=== PATIENT | female | born 1995 | race Caucasian/White ===

== ENCOUNTER 2017-05-12 15:49 | Emergency (ER) | payer OTHER ==
[~2017-05-12] VITALS: Ht 165.1 cm; Wt 113.4 kg
[~2017-05-12 15:49] MED LIST: DICY10CA3 PO; LACT1CAP6 PO; PROM25TA10 PO
[2017-05-12 16:09] VITALS: BP 145/73
[2017-05-12] MEDS ORDERED: fentaNYL PF VIAL 100 MCG/2 ML VIAL IV PRN (16:45)
[2017-05-12 16:58] LABS: BILIRUBIN,URINE SMALL (NEG); GLUCOSE,URINE NEGATIVE (NEG); NITRITE,URINE NEGATIVE (NEG); PROTEIN,URINE NEGATIVE (NEG-TRACE); UROBILINOGEN,URINE 0.2 mg/dL (0.2 mg/dL)
[2017-05-12] MEDS ORDERED: IV NORMAL SALINE 1000ML BAG 1,000 ML IV SCH (17:00)
[2017-05-12] MEDS ORDERED: FAMOTIDINE 20 MG/2 ML VIAL IVP ONE (17:00)
[2017-05-12] MEDS ORDERED: ONDANSETRON PF 4 MG/2 ML VIAL. IV ONE (17:00)
--- NOTE | 2017-05-12 17:15 | RAD ---
Ultrasound of the right upper quadrant of the abdomen 05/12/2017 Clinical history: Epigastric pain. Technique: A real-time ultrasound examination of the right upper quadrant of the abdomen was performed. Multiple images were obtained. Findings: The gallbladder is well distended. No gallstones are visualized. The gallbladder wall thickness is within normal limits. No pericholecystic fluid is seen. The liver is normal in size measuring 16.3 cm in length. Increased echogenicity of the liver parenchyma is seen consistent with fatty infiltration. No focal abnormality of the liver is seen. The common bile duct measures 3 mm in diameter which is within normal limits. The visualized portions of the pancreas and right kidney are within normal limits. Impression: Fatty infiltration of the liver. Otherwise negative study.
[2017-05-12 17:20] LABS: BACTERIA,URINE MANY /HPF (0-FEW); SQUAMOUS EPITHELIAL CELL,UR MOD /LPF
[2017-05-12 17:22] LABS: BASO % 0 % (0-3); EOS % 0 % (0-3); HEMATOCRIT 40.5 % (36.0-47.0); HEMOGLOBIN 13.5 g/dL (12.0-15.5); LYMPH # 1.4 x10^3/uL (1.0-4.8); LYMPH % 12 % (24-48); MEAN CORPUSCULAR HEMOGLOBIN 29 pg (25-35); MEAN CORPUSCULAR HGB CONC 33 g/dL (31-37); MEAN CORPUSCULAR VOLUME 85 fL (79-100); MONO % 6 % (0-9); NEUT % 81 % (31-73); PLATELET COUNT 252 x10^3/uL (140-400); RED BLOOD COUNT 4.74 x10^6/uL (3.50-5.40); RED CELL DISTRIBUTION WIDTH 12.7 % (11.5-14.5); WHITE BLOOD COUNT 11.2 x10^3/uL (4.0-11.0)
[2017-05-12 17:41] LABS: CALCIUM 8.9 mg/dL (8.5-10.1); CREATININE 0.8 mg/dL (0.6-1.0); GFR 89.7
[2017-05-12 17:48] LABS: ALBUMIN 3.5 g/dL (3.4-5.0); ALBUMIN/GLOBULIN RATIO 0.8 (1.0-1.7); TOTAL BILIRUBIN 0.7 mg/dL (0.2-1.0)
[2017-05-12] MEDS ORDERED: SUCR1TAB35 PO (18:04)
--- NOTE | 2017-05-12 18:04 | PHYS DOC ---
Past Medical History Past Medical History: No Pertinent History Past Surgical History: Appendectomy Alcohol Use: Rarely Drug Use: None Adult General Chief Complaint Chief Complaint: ABDOMINAL PAIN HPI HPI Patient is a 21 year old female who presents with complaint of abdominal pain. Patient states that she has been having symptoms of abdominal pain over the past 2 weeks. The pain has been intermittent, sharp, with underlying dull pressure since time of onset. Patient states that the symptoms usually worse in the nighttime. The patient was seen at [facility] emergency department approximately one week ago and was treated for gastritis. Patient states that since treatment she has continued to have persistent symptoms. Patient was seen by her primary doctor who did an H. pylori test which the patient states she has not received results back. She states that she was supposed to be set up with an ultrasound for further evaluation, however due to worsening symptoms today she came to the emergency department for evaluation. Patient denies any associated fevers. Patient has had associated nausea with her symptoms. Patient rates her pain as 7 out of 10. Patient has tried antacids and Phenergan for her symptoms with minimal relief. Patient states that the pain radiates from her abdomen around towards her back. Review of Systems Review of Systems Constitutional: Denies fever or chills [] Eyes: Denies change in visual acuity, redness, or eye pain [] HENT: Denies nasal congestion or sore throat [] Respiratory: Denies cough or shortness of breath [] Cardiovascular: Denies chest pain or edema [] GI: Abdominal pain, nausea, denies vomiting, bloody stools or diarrhea [] : Denies dysuria or hematuria [] Musculoskeletal: Denies back pain or joint pain [] Integument: Denies rash or skin lesions [] Neurologic: Denies headache, focal weakness or sensory changes [] Current Medications Current Medications Current Medications Medications (Trade) Dose Ordered Sig/Shanita Start Time Stop Time Status Last Admin Dose Admin Famotidine (Pepcid) 20 mg 1X ONCE 05/12/17 17:00 05/12/17 17:01 DC 05/12/17 16:54 20 MG Fentanyl Citrate (Fentanyl 2ml Vial) 50 mcg PRN Q15MIN PRN 05/12/17 16:45 05/12/17 23:59 05/12/17 16:54 50 MCG Ondansetron HCl (Zofran) 4 mg 1X ONCE 05/12/17 17:00 05/12/17 17:01 DC 05/12/17 16:53 4 MG Sodium Chloride 1,000 ml @ 1,000 mls/hr Q1H 05/12/17 17:00 05/12/17 17:59 05/12/17 16:53 1,000 MLS/HR Allergies Allergies Allergies Coded Allergies Type Severity Reaction Last Updated Verified No Known Drug Allergies 06/06/16 No Physical Exam Physical Exam Constitutional: Alert, afebrile, appears in mild to moderate discomfort. [] HENT: Normocephalic, atraumatic, bilateral external ears normal, oropharynx moist, no oral exudates, nose normal. [] Eyes: PERRLA, EOMI, conjunctiva normal, no discharge. [] Neck: Normal range of motion, no tenderness, supple, no stridor. [] Cardiovascular:Heart rate regular rhythm, no murmur [] Lungs & Thorax: Bilateral breath sounds clear to auscultation [] Abdomen: Bowel sounds normal, soft, epigastric tenderness to palpation, no guarding or rebound tenderness present, no masses, no pulsatile masses. [] Skin: Warm, dry, no erythema, no rash. [] Back: No tenderness, no CVA tenderness. [] Extremities: No tenderness, no cyanosis, no clubbing, ROM intact, no edema. [] Neurologic: Alert and oriented X 3, normal motor function, normal sensory function, no focal deficits noted. [] Current Patient Data Vital Signs Vital Signs Date Time Temp Pulse Resp B/P (MAP) Pulse Ox O2 Delivery O2 Flow Rate FiO2 05/12/17 16:54 18 97 Room Air 05/12/17 16:09 98.8 90 145/73 (97) 98.8 Lab Values Laboratory Tests Test 05/12/17 15:14 05/12/17 16:00 05/12/17 17:12 POC Urine HCG, Qualitative Hcg negative (Negative) Urine Collection Type Unknown Urine Color Yellow Urine Clarity Clear Urine pH 6.0 Urine Specific [place] >=1.030 Urine Protein Negative mg/dL (NEG-TRACE) Urine Glucose (UA) Negative mg/dL (NEG) Urine Ketones (Stick) Trace mg/dL (NEG) Urine Blood Negative (NEG) Urine Nitrite Negative (NEG) Urine Bilirubin Small (NEG) Urine Urobilinogen Dipstick 0.2 mg/dL (0.2 mg/dL) Urine Leukocyte Esterase Small (NEG) Urine RBC 1-2 /HPF (0-2) Urine WBC 1-4 /HPF (0-4) Urine Squamous Epithelial Cells Mod /LPF Urine Bacteria Many /HPF (0-FEW) Urine Mucus Marked /LPF White Blood Count 11.2 x10^3/uL (4.0-11.0) H Red Blood Count 4.74 x10^6/uL (3.50-5.40) Hemoglobin 13.5 g/dL (12.0-15.5) Hematocrit 40.5 % (36.0-47.0) Mean Corpuscular Volume 85 fL (79-100) Mean Corpuscular Hemoglobin 29 pg (25-35) Mean Corpuscular Hemoglobin Concent 33 g/dL (31-37) Red Cell Distribution Width 12.7 % (11.5-14.5) Platelet Count 252 x10^3/uL (140-400) Neutrophils (%) (Auto) 81 % (31-73) H Lymphocytes (%) (Auto) 12 % (24-48) L Monocytes (%) (Auto) 6 % (0-9) Eosinophils (%) (Auto) 0 % (0-3) Basophils (%) (Auto) 0 % (0-3) Neutrophils # (Auto) 9.0 x10^3uL (1.8-7.7) H Lymphocytes # (Auto) 1.4 x10^3/uL (1.0-4.8) Monocytes # (Auto) 0.7 x10^3/uL (0.0-1.1) Eosinophils # (Auto) 0.0 x10^3/uL (0.0-0.7) Basophils # (Auto) 0.0 x10^3/uL (0.0-0.2) Sodium Level 140 mmol/L (136-145) Potassium Level 4.0 mmol/L (3.5-5.1) Chloride Level 104 mmol/L (98-107) Carbon Dioxide Level 28 mmol/L (21-32) Anion Gap 8 (6-14) Blood Urea Nitrogen 15 mg/dL (7-20) Creatinine 0.8 mg/dL (0.6-1.0) Estimated GFR (Cockcroft-Gault) 89.7 BUN/Creatinine Ratio 19 (6-20) Glucose Level 104 mg/dL (70-99) H Calcium Level 8.9 mg/dL (8.5-10.1) Total Bilirubin 0.7 mg/dL (0.2-1.0) Aspartate Amino Transferase (AST) 23 U/L (15-37) Alanine Aminotransferase (ALT) 53 U/L (14-59) Alkaline Phosphatase 71 U/L (46-116) Total Protein 8.0 g/dL (6.4-8.2) Albumin 3.5 g/dL (3.4-5.0) Albumin/Globulin Ratio 0.8 (1.0-1.7) L Lipase 102 U/L (73-393) Laboratory Tests 05/12/17 17:12 Laboratory Tests 05/12/17 17:12 EKG EKG Not performed [] Radiology/Procedures Radiology/Procedures [facility] [address] [place], [place] [id number] IMAGING REPORT Signed PATIENT: JUSTIN HERNANDEZ ACCOUNT: [id number] : 1995 LOCATION: ER AGE: 21 SEX: F EXAM STATUS: REG ER ORD. PHYSICIAN: JUNO CROSS MD REASON: epigastric and right upper quadrant pain PROCEDURE: ABDOMEN LTD Ultrasound of the right upper quadrant of the abdomen 05/12/2017 Clinical history: Epigastric pain. Technique: A real-time ultrasound examination of the right upper quadrant of the abdomen was performed. Multiple images were obtained. Findings: The gallbladder is well distended. No gallstones are visualized. The gallbladder wall thickness is within normal limits. No pericholecystic fluid is seen. The liver is normal in size measuring 16.3 cm in length. Increased echogenicity of the liver parenchyma is seen consistent with fatty infiltration. No focal abnormality of the liver is seen. The common bile duct measures 3 mm in diameter which is within normal limits. The visualized portions of the pancreas and right kidney are within normal limits. Impression: Fatty infiltration of the liver. Otherwise negative study. DICTATED and SIGNED BY: CHARLY PATINO MD DATE: 05/12/17 1303 CC: JUNO CROSS MD; LEYLA MCGRAW MD ~ [] Course & Med Decision Making Course & Med Decision Making Pertinent Labs and Imaging studies reviewed. (See chart for details) Patient was given IV fluids, fentanyl, and Zofran. On reevaluation, patient's symptoms have improved at this time. Patient's lab work and imaging are negative for acute pathology. I suspect patient's symptoms are likely intraluminal and may be rental sales representative of possible peptic ulcer disease. Patient will be started on Carafate aid with symptoms. Patient referred to Dr. Bauman for follow-up in one to 2 weeks for reevaluation. Advised return emergency department for any worsening symptoms. Patient was understanding and in agreement with treatment plan. Dragon Disclaimer Dragon Disclaimer This electronic medical record was generated, in whole or in part, using a voice recognition dictation system. Departure Departure Impression: Primary Impression: Abdominal pain Additional Impression: Nausea Disposition: 01 HOME, SELF-CARE Condition: IMPROVED Referrals: LEYLA MCGRAW MD (PCP) JAVID BAUMAN MD Patient Instructions: Abdominal Pain (Nonspecific), Nausea, Adult Additional Instructions: Follow-up Dr. Bauman in one to 2 weeks for reevaluation. Return to emergency department for any worsening symptoms. Scripts Sucralfate (CARAFATE) 1 Gm Tablet 1 TAB PO QID, #120 TAB 0 Refills Prov: JUNO CROSS MD 05/12/17 Problem Qualifiers Primary Impression: Abdominal pain Abdominal location: upper abdomen, unspecified Qualified Codes: R10.10 - Upper abdominal pain, unspecified JUNO CROSS MD May 12, 2017 18:04
== END 2017-05-12 18:44 | disposition home or self-care (01) ==
LOC: ER 15:49
DX: R10.9 Unspecified abdominal pain (principal); R11.0 Nausea; Z90.49 Acquired absence of other specified parts of digestive tract
CPT/HCPCS: 36415; 76705; 80053; 81001; 81025; 83690; 85027; 87086; 96361; 96374; 96375; 99285; J2405; J3010; J7030; S0028

== ENCOUNTER 2017-05-15 15:56 | Emergency (ER) | payer OTHER ==
[~2017-05-15] VITALS: Ht 165.1 cm; Wt 113.4 kg
[~2017-05-15 15:56] MED LIST changes: +SUCR1TAB35 PO
[2017-05-15] MEDS ORDERED: FAMOTIDINE 20 MG/2 ML VIAL IVP ONE (17:15)
[2017-05-15] MEDS ORDERED: ONDANSETRON PF 4 MG/2 ML VIAL. IV ONE (17:15)
[2017-05-15] MEDS ORDERED: IV NORMAL SALINE 1000ML BAG 1,000 ML IV ONE (17:15)
[2017-05-15 17:45] LABS: BASO # 0.1 x10^3/uL (0.0-0.2); BASO % 1 % (0-3); EOS % 1 % (0-3); HEMATOCRIT 42.8 % (36.0-47.0); HEMOGLOBIN 14.2 g/dL (12.0-15.5); LYMPH # 1.4 x10^3/uL (1.0-4.8); LYMPH % 12 % (24-48); MEAN CORPUSCULAR HEMOGLOBIN 28 pg (25-35); MEAN CORPUSCULAR HGB CONC 33 g/dL (31-37); MEAN CORPUSCULAR VOLUME 85 fL (79-100); MONO % 7 % (0-9); NEUT % 80 % (31-73); PLATELET COUNT 271 x10^3/uL (140-400); RED BLOOD COUNT 5.03 x10^6/uL (3.50-5.40); RED CELL DISTRIBUTION WIDTH 12.9 % (11.5-14.5); WHITE BLOOD COUNT 11.8 x10^3/uL (4.0-11.0)
[2017-05-15 17:45] LABS: BILIRUBIN,URINE SMALL (NEG); GLUCOSE,URINE NEGATIVE (NEG); NITRITE,URINE NEGATIVE (NEG); PH,URINE 6.5; PROTEIN,URINE NEGATIVE (NEG-TRACE); UROBILINOGEN,URINE 0.2 mg/dL (0.2 mg/dL)
[2017-05-15] MEDS ORDERED: IOHEXOL 300 MG/ML 75 ML VIAL IV ONE (17:45)
[2017-05-15] MEDS ORDERED: CONTRAST GIVEN MC PRN (17:45)
[2017-05-15 17:53] LABS: BACTERIA,URINE MODERATE /HPF (0-FEW); BARBITURATES NEG (NEG); BENZODIAZEPINES NEG (NEG); CANNABINOIDS NEG (NEG); COCAINE NEG (NEG); METHADONE NEG (NEG); OPIATES NEG (NEG); PHENCYCLIDINE NEG (NEG); RBC,URINE 0 /HPF (0-2); SQUAMOUS EPITHELIAL CELL,UR MANY /LPF
[2017-05-15 17:57] LABS: CALCIUM 9.5 mg/dL (8.5-10.1); CREATININE 0.9 mg/dL (0.6-1.0); GFR 78.3
[2017-05-15 18:02] LABS: ALBUMIN 3.9 g/dL (3.4-5.0); ALBUMIN/GLOBULIN RATIO 0.8 (1.0-1.7); TOTAL BILIRUBIN 0.8 mg/dL (0.2-1.0); TOTAL PROTEIN 8.9 g/dL (6.4-8.2)
--- NOTE | 2017-05-15 18:05 | RAD ---
Indication: Left upper quadrant pain. Axial imaging through the abdomen and pelvis was performed after the administration of intravenous contrast. One or more of the following individualized dose reduction techniques were utilized for this examination: 1. Automated exposure control 2. Adjustment of the mA and/or kV according to patient size 3. Use of iterative reconstruction technique No prior studies are available for comparison. The lung bases are clear. There is generalized low density throughout the liver consistent with fatty infiltration. Gallbladder is unremarkable. The pancreas and spleen are unremarkable. No adrenal mass is detected. The kidneys are unremarkable. The aorta is nonaneurysmal. The small and large bowel loops are normal caliber. No obstruction is identified. There is no free fluid. The bladder and uterus are unremarkable. The bony structures are nonacute. IMPRESSION: 1. Fatty infiltration of the liver. 2. No acute feature in the abdomen or pelvis is identified. Electronically signed by: Geoffrey Juares MD (05/15/2017 6:02 PM) [facility]
[2017-05-15] MEDS ORDERED: DICY20TA3 PO (19:49)
--- NOTE | 2017-05-15 19:51 | PHYS DOC ---
Past Medical History Past Medical History: No Pertinent History Past Surgical History: Appendectomy Alcohol Use: Rarely Drug Use: None Adult General Chief Complaint Chief Complaint: ABDOMINAL PAIN HPI HPI Patient is a 21 year old female who presents with 7 out of 10 cramping left upper quadrant abdominal pain intermittent in nature that has been going on for the last 1 month. Patient states she was seen in the ED a week ago for the same complaint. She states she was worked up and everything was negative. Patient states the pain has been on and off since then. She states the pain is worse at night when she is laying down. Patient denies any nausea vomiting. Denies any fever. Denies any urgency frequency dysuria. Denies any chance she is . She states she has an appointment with the GI doctor on May 25, 2017. Review of Systems Review of Systems Constitutional: Denies fever or chills [] Eyes: Denies change in visual acuity, redness, or eye pain [] HENT: Denies nasal congestion or sore throat [] Respiratory: Denies cough or shortness of breath [] Cardiovascular: No additional information not addressed in HPI [] GI: Denies abdominal pain, nausea, vomiting, bloody stools or diarrhea [] : Denies dysuria or hematuria [] Musculoskeletal: Denies back pain or joint pain [] Integument: Denies rash or skin lesions [] Neurologic: Denies headache, focal weakness or sensory changes [] Endocrine: Denies polyuria or polydipsia [] Current Medications Current Medications Current Medications Medications (Trade) Dose Ordered Sig/Shanita Start Time Stop Time Status Last Admin Dose Admin Famotidine (Pepcid) 20 mg 1X ONCE 05/15/17 17:15 05/15/17 17:16 DC 05/15/17 17:39 20 MG Info (Do NOT chart on this entry -- for MONITORING) 1 each PRN DAILY PRN 05/15/17 17:45 05/17/17 17:44 Iohexol (Omnipaque 300 Mg/ml) 75 ml 1X ONCE 05/15/17 17:45 05/15/17 17:46 DC 05/15/17 17:53 75 ML Ondansetron HCl (Zofran) 4 mg 1X ONCE 05/15/17 17:15 05/15/17 17:16 DC 05/15/17 17:39 4 MG Sodium Chloride 1,000 ml @ 1,000 mls/hr 1X ONCE 05/15/17 17:15 05/15/17 18:14 DC 05/15/17 17:39 1,000 MLS/HR Allergies Allergies Allergies Coded Allergies Type Severity Reaction Last Updated Verified No Known Drug Allergies 06/06/16 No Physical Exam Physical Exam Constitutional: Well developed, well nourished, no acute distress, non-toxic appearance. [] HENT: Normocephalic, atraumatic, bilateral external ears normal, oropharynx moist, no oral exudates, nose normal. [] Eyes: PERRLA, EOMI, conjunctiva normal, no discharge. [] Neck: Normal range of motion, no tenderness, supple, no stridor. [] Cardiovascular:Heart rate regular rhythm, no murmur [] Lungs & Thorax: Bilateral breath sounds clear to auscultation [] Abdomen: Rounded abdomen. Bowel sounds normal, soft, no tenderness, no masses, no pulsatile masses. [] Skin: Warm, dry, no erythema, no rash. [] Back: No tenderness, no CVA tenderness. [] Extremities: No tenderness, no cyanosis, no clubbing, ROM intact, no edema. [] Neurologic: Alert and oriented X 3, normal motor function, normal sensory function, no focal deficits noted. [] Psychologic: Affect normal, judgement normal, mood normal. [] Current Patient Data Vital Signs Vital Signs Date Time Temp Pulse Resp B/P (MAP) Pulse Ox O2 Delivery O2 Flow Rate FiO2 05/15/17 19:18 88 18 118/58 (78) 98 Room Air 05/15/17 16:56 98.5 98.5 Lab Values Laboratory Tests Test 05/15/17 16:18 05/15/17 17:07 05/15/17 17:32 POC Urine HCG, Qualitative Hcg negative (Negative) Urine Collection Type Unknown Urine Color Yellow Urine Clarity Cloudy Urine pH 6.5 Urine Specific [place] >=1.030 Urine Protein Negative mg/dL (NEG-TRACE) Urine Glucose (UA) Negative mg/dL (NEG) Urine Ketones (Stick) >=80 mg/dL (NEG) Urine Blood Negative (NEG) Urine Nitrite Negative (NEG) Urine Bilirubin Small (NEG) Urine Urobilinogen Dipstick 0.2 mg/dL (0.2 mg/dL) Urine Leukocyte Esterase Small (NEG) Urine RBC 0 /HPF (0-2) Urine WBC 5-10 /HPF (0-4) Urine Squamous Epithelial Cells Many /LPF Urine Bacteria Moderate /HPF (0-FEW) Urine Mucus Marked /LPF Urine Opiates Screen Neg (NEG) Urine Methadone Screen Neg (NEG) Urine Barbiturates Neg (NEG) Urine Phencyclidine Screen Neg (NEG) Urine Amphetamine/Methamphetamine Neg (NEG) Urine Benzodiazepines Screen Neg (NEG) Urine Cocaine Screen Neg (NEG) Urine Cannabinoids Screen Neg (NEG) Urine Ethyl Alcohol Neg (NEG) White Blood Count 11.8 x10^3/uL (4.0-11.0) H Red Blood Count 5.03 x10^6/uL (3.50-5.40) Hemoglobin 14.2 g/dL (12.0-15.5) Hematocrit 42.8 % (36.0-47.0) Mean Corpuscular Volume 85 fL (79-100) Mean Corpuscular Hemoglobin 28 pg (25-35) Mean Corpuscular Hemoglobin Concent 33 g/dL (31-37) Red Cell Distribution Width 12.9 % (11.5-14.5) Platelet Count 271 x10^3/uL (140-400) Neutrophils (%) (Auto) 80 % (31-73) H Lymphocytes (%) (Auto) 12 % (24-48) L Monocytes (%) (Auto) 7 % (0-9) Eosinophils (%) (Auto) 1 % (0-3) Basophils (%) (Auto) 1 % (0-3) Neutrophils # (Auto) 9.4 x10^3uL (1.8-7.7) H Lymphocytes # (Auto) 1.4 x10^3/uL (1.0-4.8) Monocytes # (Auto) 0.8 x10^3/uL (0.0-1.1) Eosinophils # (Auto) 0.1 x10^3/uL (0.0-0.7) Basophils # (Auto) 0.1 x10^3/uL (0.0-0.2) Sodium Level 138 mmol/L (136-145) Potassium Level 4.0 mmol/L (3.5-5.1) Chloride Level 99 mmol/L (98-107) Carbon Dioxide Level 26 mmol/L (21-32) Anion Gap 13 (6-14) Blood Urea Nitrogen 11 mg/dL (7-20) Creatinine 0.9 mg/dL (0.6-1.0) Estimated GFR (Cockcroft-Gault) 78.3 BUN/Creatinine Ratio 12 (6-20) Glucose Level 89 mg/dL (70-99) Calcium Level 9.5 mg/dL (8.5-10.1) Total Bilirubin 0.8 mg/dL (0.2-1.0) Aspartate Amino Transferase (AST) 38 U/L (15-37) H Alanine Aminotransferase (ALT) 75 U/L (14-59) H Alkaline Phosphatase 78 U/L (46-116) Total Protein 8.9 g/dL (6.4-8.2) H Albumin 3.9 g/dL (3.4-5.0) Albumin/Globulin Ratio 0.8 (1.0-1.7) L Lipase 98 U/L (73-393) Ethyl Alcohol Level < 10 mg/dL (0-10) Laboratory Tests 05/15/17 17:32 Laboratory Tests 05/15/17 17:32 EKG EKG [] Radiology/Procedures Radiology/Procedures [] Course & Med Decision Making Course & Med Decision Making Pertinent Labs and Imaging studies reviewed. (See chart for details) This is a 21-year-old female patient presenting to the ED with left upper quadrant abdominal pain for 1 month. Patient was seen in the ED a week ago with the same complaint, she had negative workup including ultrasound and labs. She is back in the ED with the same pain. Her workup is negative today as well. She is in no distress. She has an appointment with GI doctor pro horton on May 25, 2017. She has nausea medicine at home. She was discharged with dicyclomine. I highly recommended following up with GI for an upper GI series. She is currently on Carafate. She was provided return precautions and discharged in stable condition. Dragon Disclaimer Dragon Disclaimer This electronic medical record was generated, in whole or in part, using a voice recognition dictation system. Departure Departure Impression: Primary Impression: Left upper quadrant pain Disposition: HOME, SELF-CARE Condition: STABLE Referrals: LEYLA MCGRAW MD (PCP) Follow up with Dr. Bauman next week. Patient Instructions: Abdominal Pain Additional Instructions: You were seen for left upper quadrant abdominal pain. Follow-up with Dr. Bauman as soon as you can take the prescribed medicines as needed. Come back to the ED symptoms worsen.. Scripts Dicyclomine Hcl (DICYCLOMINE HCL) 20 Mg Tablet 1 TAB PO TID, #30 TAB 1 Refill Prov: LANCE TITUS APRN 05/15/17 LANCE TITUS APRN May 15, 2017 19:51
[2017-05-15 19:55] VITALS: BP 138/65
== END 2017-05-15 19:55 | disposition home or self-care (01) ==
LOC: ER 15:56
DX: R10.12 Left upper quadrant pain (principal); Z90.49 Acquired absence of other specified parts of digestive tract
CPT/HCPCS: 36415; 74177; 80053; 80307; 81001; 81025; 83690; 85027; 87086; 96361; 96374; 96375; 99285; G0480; J2405; J7030; Q9967; S0028; G0479

== ENCOUNTER → 2017-06-02 | Outpatient (CLI) | payer OTHER ==
[2017-05-15 19:55] VITALS: BP 138/65
[~2017-06-02] VITALS: Ht 165.1 cm; Wt 113.4 kg
[~2017-06-02] MED LIST changes: +DICY20TA3 PO; +SINCALIDE 2.27 MCG in IV NORMAL SALINE 50ML 30 ML IV ONE
--- NOTE | 2017-06-02 12:33 | RAD ---
Exam performed: Nuclear medicine hepatobiliary scan. Indication: Abdominal pain for 6 weeks. Date of Service:06/02/17. Comparison: Limited abdominal ultrasound from 05/12/17. Discussion: Patient was administered 5.0 mCi of technetium 99 M Choletec and sequential images of the abdomen are obtained. The images demonstrate prompt uptake of the radiotracer by the liver with excretion into the biliary channels. The gallbladder is seen at 30 minutes. Delayed small bowel activity is seen. Patient was also administered 2.3 mcg of CCK and repeat acquisitions were obtained. There is very slow contraction of the gall bladder with increasing activity in the small bowel. The above data is utilized and a time activity curve is generated and gallbladder ejection fraction is calculated which measures 12.1 percent which is within limits of normal . Impression: 1.Abnormal hepatobiliary scan with gallbladder ejection fraction measuring 12.1%
== END | disposition home or self-care (01) ==
LOC: NM 08:20
PROVIDERS: ATTEND Internal Medicine Gastroenterology
DX: R10.11 Right upper quadrant pain (principal)
CPT/HCPCS: 78226; 96374; 96375; A9537; J2805

== ENCOUNTER 2017-07-07 08:32 | Day surgery (SDC) | payer OTHER ==
[~2017-07-07] VITALS: Ht 162.6 cm; Wt 119.3 kg
[~2017-07-07 08:32] MED LIST changes: +BUPIVACAINE-EPI 0.5%-1:200000 50 ML VIAL. ONE; +GLUCAGON,HUMAN RECOMBINANT 1 MG/ML VIAL. ONE; +HYDROmorphone 2 MG/ML VIAL IV PRN; +IOHEXOL 300 MG/ML 50 ML VIAL. ONE; +IV RINGERS,LACTATED 1000ML 1,000 ML IV SCH; +LIDOCAINE 1% PF 2 ML VIAL. ID PRN; +ONDANSETRON PF 4 MG/2 ML VIAL. IV PRN; +PROCHLORPERAZINE 10 MG/2 ML VIAL. IV PRN; -SINCALIDE 2.27 MCG in IV NORMAL SALINE 50ML 30 ML IV ONE; +SURGICEL HEMOSTAT 4X8 EACH. ONE; +fentaNYL PF VIAL 100 MCG/2 ML VIAL IV PRN
[2017-07-07] MEDS ORDERED: PROPOFOL 20 ML IV ONE ×2 (08:42→10:28)
[2017-07-07] MEDS ORDERED: DEXAMETHASONE SOD PHOS 20 MG/5 ML VIAL. ONE (08:42)
[2017-07-07] MEDS ORDERED: MIDAZOLAM HCL/PF 2 MG/2 ML VIAL. ONE (08:42)
[2017-07-07] MEDS ORDERED: ONDANSETRON PF 4 MG/2 ML VIAL. ONE (08:42)
[2017-07-07] MEDS ORDERED: fentaNYL PF VIAL 100 MCG/2 ML VIAL ONE (08:42)
[2017-07-07] MEDS ORDERED: LIDOCAINE 2% PF Vial for OR 5 ML VIAL. ONE (08:42)
[2017-07-07 09:23] LABS: NEG OBC UR NEG; POS OBC UR POS
[2017-07-07 09:27] LABS: BASO % 1 % (0-3); EOS % 3 % (0-3); HEMATOCRIT 40.3 % (36.0-47.0); HEMOGLOBIN 13.9 g/dL (12.0-15.5); LYMPH # 1.7 x10^3/uL (1.0-4.8); LYMPH % 27 % (24-48); MEAN CORPUSCULAR HEMOGLOBIN 29 pg (25-35); MEAN CORPUSCULAR HGB CONC 35 g/dL (31-37); MEAN CORPUSCULAR VOLUME 84 fL (79-100); MONO % 7 % (0-9); NEUT % 63 % (31-73); PLATELET COUNT 261 x10^3/uL (140-400); RED CELL DISTRIBUTION WIDTH 13.6 % (11.5-14.5); WHITE BLOOD COUNT 6.4 x10^3/uL (4.0-11.0)
[2017-07-07] MEDS ORDERED: NEOSTIGMINE METHYLSULFATE 5 MG/5 ML SYRINGE. ONE (10:11)
[2017-07-07] MEDS ORDERED: GLYCOPYRROLATE 1 MG/5 ML VIAL. ONE (10:12)
[2017-07-07] MEDS ORDERED: SEVOFLURANE 61 TO 120 MINUTES. IH ONE (10:12)
[2017-07-07 10:26] LABS: CALCIUM 9.2 mg/dL (8.5-10.1); CREATININE 0.8 mg/dL (0.6-1.0); GFR 89.7; POTASSIUM 3.9 mmol/L (3.5-5.1); TOTAL BILIRUBIN 0.6 mg/dL (0.2-1.0)
--- NOTE | 2017-07-07 10:26 | RAD ---
Intraoperative cholangiogram, 07/07/2017: History: Cholecystectomy 2 spot films from surgery are presented for review. Contrast has been injected into the cystic duct remnant. 0.8 minutes of fluoroscopy time was utilized. The common duct is of normal caliber. There is good flow of contrast into the duodenum at the ampulla. There is a small lucency projected over the distal common bile duct which may be due to an overlying shadow or air bubble. A distal common bile duct calculus cannot be excluded. The incompletely opacified intrahepatic ducts are unremarkable. No contrast extravasation is seen. IMPRESSION: Small distal common bile duct lucency as described above.
[2017-07-07] MEDS: fentaNYL PF VIAL 100 MCG/2 ML VIAL IV PRN ×4 (11:04→12:27)
--- NOTE | 2017-07-07 11:10 | PDOC ---
BRIEF OPERATIVE NOTE Date: Jul 07, 2017 Pre-Op Diagnosis biliary dyskinesia Post-Op Diagnosis same Procedure Performed l/s cholecystectomy with cholangiograms Surgeon Riaz [employer] Repairer hSari COLLINS Anesthesia Type: General Blood Loss 10cc IV Fluid 1000cc Specimens Obtained GB Findings supple GB, grams with possible distal CBD stone/air bubble, contrast drained into the duodenum Complications none OPerative Note Wk # [id number] FIDELINA GONG MD Jul 07, 2017 11:10
--- NOTE | 2017-07-07 11:23 | OP ---
DATE OF SURGERY: 07/07/2017 PREOPERATIVE DIAGNOSIS: Biliary dyskinesia. POSTOPERATIVE DIAGNOSIS: Biliary dyskinesia. PROCEDURE: Laparoscopic cholecystectomy with cholangiogram. SURGEON: Javon Gong M.D. LAN ANALYST: Samantha KARINA. ANESTHESIA: General endotracheal. ESTIMATED BLOOD LOSS: 10 mL. IV FLUIDS: A liter. INDICATIONS: The patient is an obese female, 21 years old, with a low ejection fraction on PIPIDA scan and postprandial nausea and pain. She is brought for cholecystectomy. OPERATIVE FINDINGS: The liver was generous, the gallbladder was supple. There were a few adhesions in the right lower quadrant from previous open appendectomy. Otherwise, visual inspection of the abdomen failed to reveal obvious abnormalities. DESCRIPTION OF PROCEDURE: The patient brought to the operating suite, given a general endotracheal anesthetic and the abdomen prepped and draped in the usual sterile fashion. A supraumbilical incision was made after infiltrating local anesthetic and a 5-mm Visiport used to gain access into the abdominal cavity. Pneumoperitoneum was established. Camera inserted and inspection carried out, with results as noted above. With the table in reverse Trendelenburg rolled to the left, the epigastric, midclavicular and lateral ports were placed under direct vision. The gallbladder was retracted superolaterally. The cystic duct and cystic artery were carefully exposed. The cystic duct was clipped on the gallbladder side. Cholangiograms were made. These suggested a possible small air bubble versus small stone in the distal bile duct. However, contrast flowed freely into the duodenum. In light of this, the catheter was removed. The cystic duct was clipped x 3 and divided, taking care to avoid injury or compromise of the common duct. Anterior and posterior branch of the cystic artery were encountered, clipped and divided and gallbladder freed from the bed with cautery dissection and placed in an EndoCatch bag. Hemostasis obtained in the fossa with cautery and a small piece of Surgicel. No evidence of bile leak was seen. A 19-Pashto round Mario drain was brought through the epigastric port out the lateral port, sewn to the skin with silk stitch and left in the subhepatic space for postoperative drainage. Table returned to level. Gallbladder delivered through the epigastric incision. Epigastric incision closed with interrupted 0 Vicryl suture. Intra-abdominal pressure decreased to 6 cm of water. No bleeding from the epigastric closure or from the midclavicular port site after its removal or from the drain site. Abdomen decompressed. Skin incisions closed with subcuticular 4-0 Monocryl. Steri-Strips and sterile dressings applied. The patient awakened from her anesthetic and taken to the recovery room in satisfactory condition. JAVON GONG MD DR: NAYAN/barbara JOB#: [id number] / [id number]
[2017-07-07] MEDS: MORPHINE SULFATE 4 MG/ML DISP.SYRIN. IV PRN ×4 (11:28→12:03)
[2017-07-07] MEDS ORDERED: oxyCODONE/APAP 7.5/325 1 TAB TABLET PO ONE (12:00)
--- NOTE | 2017-07-07 12:52 | DISCH ---
DISCHARGE INSTRUCTIONS Condition on Discharge Condition on Discharge: Stable Activity After Discharge Activity Instructions for Disc: Activity as tolerated, Avoid exertion Lifting Instructions after Dis: No heavy lifting Driving Instructions after Dis: Do not drive (3-4 days) Diet after Discharge Diet after Discharge: Regular Wound Incision Care Wound/Incision Care: Ice to area for comfort Other wound/incision instructi: maintain CHRISTIAN drain Follow-Up Follow up with: Riaz lopez this week for CHRISTIAN removal FIDELINA GONG MD Jul 07, 2017 12:52
[2017-07-07] MEDS ORDERED: SENN1TAB70 PO (12:56)
[2017-07-07] MEDS ORDERED: OXYC-327 PO (12:56)
[2017-07-07 13:18] VITALS: BP 127/50
--- NOTE | 2017-07-08 13:06 | PATHOLOGY ---
PATHOLOGY REPORT * * * * * * * * FINAL DIAGNOSIS: Gallbladder, cholecystectomy: - Chronic cholecystitis, mild. - Cholesterolosis. - No gallstones present. (SKM:nadine; 07/08/2017) REPORT ELECTRONICALLY SIGNED BY: Francie Gaines M.D. DATE/TIME: 07/08/2017 13:05 * * * * * * * * GROSS PATHOLOGY: Received in formalin labeled "Justin Ross, gallbladder and contents," is a 7.4 x 3.5 x 3.2 cm, intact gallbladder with graybluish, vascular, and wrinkled serosal surfaces. Opening the gallbladder reveals dark green, velvety mucosa, rippled with yellow highlights, and an average wall thickness of 0.1 cm. Calculi are not present and no masses are noted grossly. Oil [employer] sections from the body and fundus are submitted along with the proximal margin in cassette A1. (TSD; 07/07/2017) INITIAL CPT CODE(S): A; 93368 Professional services performed [place] [facility] [place] [address] Technical services performed by [facility] at [address] [place] [address] [address], [place] [address]. SPECIMEN(S) RECEIVED: A.Gallbladder and contents CLINICAL HISTORY: Biliary dyskinesia PATIENT: JUSTIN ROSS /AGE: 10 1995 (Age: 21) PATIENT #: [id number] ALT CASE #: SPECIMEN COLLECTION DATE: 07/07/2017 SPECIMEN RECEIVED DATE: 07/07/2017 [facility] - [address] [place] [address] - PHONE: [phone] * * * END OF REPORT * * *
== END 2017-07-07 14:06 | disposition home or self-care (01) ==
LOC: ENDOS 08:32
PROVIDERS: ATTEND Surgery
DX: K82.8 Other specified diseases of gallbladder (principal); E66.9 Obesity, unspecified; Z68.42 Body mass index [BMI] 45.0-49.9, adult; Z98.890 Other specified postprocedural states; Z72.89 Other problems related to lifestyle
CPT/HCPCS: 36415; 47563; 74300; 80048; 81025; 82040; 82247; 85025; C1769; J0780; J1100; J2250; J2270; J2405; J2704; J2710; J3010; J3490; J7030; J7120; Q9967; J0690; J1610; J2001

== ENCOUNTER 2019-03-21 19:28 | Emergency (ER) | payer OTHER ==
[~2019-03-21] VITALS: Ht 165.1 cm; Wt 99.8 kg
[~2019-03-21 19:28] MED LIST changes: -BUPIVACAINE-EPI 0.5%-1:200000 50 ML VIAL. ONE; -GLUCAGON,HUMAN RECOMBINANT 1 MG/ML VIAL. ONE; -HYDROmorphone 2 MG/ML VIAL IV PRN; -IOHEXOL 300 MG/ML 50 ML VIAL. ONE; -IV RINGERS,LACTATED 1000ML 1,000 ML IV SCH; -LIDOCAINE 1% PF 2 ML VIAL. ID PRN; -ONDANSETRON PF 4 MG/2 ML VIAL. IV PRN; +OXYC1TAB19 PO; -PROCHLORPERAZINE 10 MG/2 ML VIAL. IV PRN; +SENN1TAB70 PO; -SURGICEL HEMOSTAT 4X8 EACH. ONE; -fentaNYL PF VIAL 100 MCG/2 ML VIAL IV PRN
[2019-03-21 19:36] VITALS: BP 127/72
[2019-03-21] MEDS ORDERED: NAPROXEN 500 MG TABLET PO STA (20:09)
[2019-03-21] MEDS ORDERED: diazePAM 5 MG TABLET PO ONE (20:15)
--- NOTE | 2019-03-21 20:16 | PHYS DOC ---
Past Medical History Past Medical History: Anxiety, Depression (RITCHIE PORTILLO APRN) Past Surgical History: Appendectomy, Cholecystectomy (RITCHIE PORTILLO APRN) Alcohol Use: Rarely Drug Use: None (RITCHIE PORTILLO APRN) Adult General Chief Complaint Chief Complaint: MULTIPLE COMPLAINTS HPI HPI Patient is a 23 year old female who presents to the emergency department with complaints of headache, neck, and back pain after falling off the back of a 4 guerrero last night. Patient states that the 4 guerrero was not in motion when she fell off. She denies any alcohol or drug use. Patient denies any loss consciousness, vomiting, vision changes, or bleeding from the ears or nose. She states she has had mild nausea. Currently she rates her pain a 8 out of 10 on the pain scale. (RITCHIE PORTILLO APRN) Review of Systems Review of Systems Constitutional: Denies fever or chills [] Eyes: Denies change in visual acuity, redness, or eye pain [] HENT: Denies nasal congestion or sore throat; see history of present illness [] Respiratory: Denies cough or shortness of breath [] Cardiovascular: No additional information not addressed in HPI [] GI: Denies abdominal pain, or vomiting; see history of present illness : Denies dysuria or hematuria [] Musculoskeletal: See history of present illness Integument: Denies rash or skin lesions [] Neurologic: Denies headache, focal weakness or sensory changes [] Complete systems were reviewed and found to be within normal limits, except as documented in this note. (RITCHIE PORTILLO APRN) Current Medications Current Medications Current Medications Medications (Trade) Dose Ordered Sig/Shanita Start Time Stop Time Status Last Admin Dose Admin Diazepam (Valium) 5 mg 1X ONCE 03/21/19 20:15 03/21/19 20:16 DC 03/21/19 20:26 5 MG Naproxen (Naprosyn) 500 mg 1X STAT 03/21/19 20:09 03/21/19 20:13 DC 03/21/19 20:26 500 MG (DANDRE LANCE DO) Allergies Allergies Allergies Coded Allergies Type Severity Reaction Last Updated Verified No Known Drug Allergies 07/07/17 No (DANDRE LANCE DO) Physical Exam Physical Exam Constitutional: Well developed, well nourished, no acute distress, non-toxic appearance, obese [] HENT: Normocephalic, atraumatic, bilateral external ears normal, bilateral TMs normal, oropharynx moist, no oral exudates, nose normal. [] Eyes: PERRLA, EOMI, red reflex present bilaterally, conjunctiva normal, no discharge. [] Neck: Normal range of motion, right paraspinal cervical tenderness, supple, no stridor. [] Cardiovascular:Heart rate regular rhythm, no murmur [] Lungs & Thorax: Bilateral breath sounds clear to auscultation [] Abdomen: soft, no tenderness Skin: Warm, dry, no erythema, no rash; small hematomas noted to right flank and anterior right knee [] Back: Right thoracic and lumbar paraspinal tenderness to palpation Extremities: No tenderness, no clubbing, ROM intact, no edema. [] Neurologic: Alert and oriented X 3, normal motor function, normal sensory function, no focal deficits noted. [] Psychologic: Affect normal, judgement normal, mood normal. [] (RITCHIE PORTILLO APRN) Current Patient Data Vital Signs Vital Signs Date Time Temp Pulse Resp B/P (MAP) Pulse Ox O2 Delivery O2 Flow Rate FiO2 03/21/19 19:36 98.4 112 16 127/72 (90) 99 Room Air 98.4 (DANDRE LANCE DO) Lab Values Laboratory Tests Test 03/21/19 20:22 03/21/19 20:23 Urine Collection Type Unknown Urine Color Yellow Urine Clarity Clear Urine pH 6.0 Urine Specific Bulger 1.025 Urine Protein Negative mg/dL (NEG-TRACE) Urine Glucose (UA) Negative mg/dL (NEG) Urine Ketones (Stick) 15 mg/dL (NEG) Urine Blood Negative (NEG) Urine Nitrite Negative (NEG) Urine Bilirubin Small (NEG) Urine Urobilinogen Dipstick 0.2 mg/dL (0.2 mg/dL) Urine Leukocyte Esterase Small (NEG) Urine RBC 0 /HPF (0-2) Urine WBC 5-10 /HPF (0-4) Urine Squamous Epithelial Cells Many /LPF Urine Bacteria Moderate /HPF (0-FEW) Urine Mucus Marked /LPF POC Urine HCG, Qualitative Hcg negative (Negative) Microbiology 03/21/19 Urine Culture - Final, Complete 03/21/19 Urine Culture Result 1 (ARTIE) - Final, Complete (LANCE,DANDRE R DO) Lab Values Laboratory Tests Test 03/21/19 20:22 03/21/19 20:23 Urine Collection Type Unknown Urine Color Yellow Urine Clarity Clear Urine pH 6.0 Urine Specific Bulger 1.025 Urine Protein Negative mg/dL (NEG-TRACE) Urine Glucose (UA) Negative mg/dL (NEG) Urine Ketones (Stick) 15 mg/dL (NEG) Urine Blood Negative (NEG) Urine Nitrite Negative (NEG) Urine Bilirubin Small (NEG) Urine Urobilinogen Dipstick 0.2 mg/dL (0.2 mg/dL) Urine Leukocyte Esterase Small (NEG) Urine RBC 0 /HPF (0-2) Urine WBC 5-10 /HPF (0-4) Urine Squamous Epithelial Cells Many /LPF Urine Bacteria Moderate /HPF (0-FEW) Urine Mucus Marked /LPF POC Urine HCG, Qualitative Hcg negative (Negative) (RITCHIE PORTILLO APRN) EKG EKG [] (RITCHIE PORTILLO APRN) Radiology/Procedures Radiology/Procedures [] (RITCHIE PORTILLO APRN) Course & Med Decision Making Course & Med Decision Making Pertinent Labs and Imaging studies reviewed. (See chart for details) Dx: Acute cervical strain, pain in right paraspinal region, right flank hematoma, contusion of right knee UA negative for blood. Low suspicion of acute head injury or bleed, no CT warranted, patient agrees Pt was given 5 mg of Valium in the emergency department and 500 mg of naproxen, reports feeling much better prior to discharge. Prescriptions written for Phenergan and naproxen. Follow-up with primary care doctor if symptoms persist, return to the ER symptoms worsen. Patient verbalized an understanding of home care, medications, follow-up, and return to ED instructions and was in agreement with the plan of care. (RITCHIE PORTILLO APRN) Dragon Disclaimer Dragon Disclaimer This electronic medical record was generated, in whole or in part, using a voice recognition dictation system. (RITCHIE PORTILLO APRN) Departure Departure Impression: Primary Impression: Cervical strain, acute Additional Impressions: Pain in right paraspinal region Right flank hematoma Contusion of right knee, initial encounter Disposition: HOME, SELF-CARE Condition: STABLE Referrals: PIEDAD STRANGE MD (PCP) Patient Instructions: Cervical Strain and Sprain with Rehab[facility], Contusion, [id number] Additional Instructions: Fill prescription(s) and use as directed. Recommend application of ice, elevation, and rest of affected extremity. Follow up with her primary care doctor if symptoms persist, return to the ER if your symptoms worsen. Scripts Orphenadrine Citrate (ORPHENADRINE CITRATE) 100 Mg Tablet.er 100 MG PO BID PRN for PAIN for 10 Days, #20 TAB.SR 0 Refills Prov: RITCHIE PORTILLO APRN 03/21/19 Naproxen (NAPROXEN) 500 Mg Tablet 500 MG PO BID PRN for PAIN for 10 Days, #20 TAB 0 Refills Prov: RITCHIE PORTILLO APRN 03/21/19 Attending Signature Attending Signature I have reviewed the PA/VIDEO GAMES MECHANIC's note and plan of care. I was available for consultation as needed during the patient's visit in the emergency department. I agree with the clinical impression, plan, and disposition. (DANDRE LANCE DO) Problem Qualifiers Primary Impression: Cervical strain, acute Encounter type: initial encounter Qualified Codes: S16.1XXA - Strain of muscle, fascia and tendon at neck level, initial encounter Additional Impressions: Right flank hematoma Encounter type: initial encounter Qualified Codes: S30.1XXA - Contusion of abdominal wall, initial encounter RITCHIE PORTILLO APRN Mar 21, 2019 20:16 DANDRE LANCE DO Mar 24, 2019 18:48
[2019-03-21 20:29] LABS: BILIRUBIN,URINE SMALL (NEG); CLARITY,URINE CLEAR; COLOR,URINE YELLOW; NITRITE,URINE NEGATIVE (NEG); PROTEIN,URINE NEGATIVE (NEG-TRACE); UROBILINOGEN,URINE 0.2 mg/dL (0.2 mg/dL)
[2019-03-21 20:42] LABS: BACTERIA,URINE MODERATE /HPF (0-FEW); RBC,URINE 0 /HPF (0-2); SQUAMOUS EPITHELIAL CELL,UR MANY /LPF
[2019-03-21] MEDS ORDERED: ORPH100T PO (21:03)
[2019-03-21] MEDS ORDERED: NAPR-514 PO (21:03)
== END 2019-03-21 21:08 | disposition home or self-care (01) ==
LOC: ER 19:28
DX: S16.1XXA Strain of muscle, fascia and tendon at neck level, initial encounter (principal); S30.1XXA Contusion of abdominal wall, initial encounter; S80.01XA Contusion of right knee, initial encounter; R51 Headache; M54.5 Low back pain; M54.6 Pain in thoracic spine; Z90.49 Acquired absence of other specified parts of digestive tract; F41.9 Anxiety disorder, unspecified; F32.9 Major depressive disorder, single episode, unspecified; Z90.89 Acquired absence of other organs; W17.89XA Other fall from one level to another, initial encounter; Y93.89 Activity, other specified; Y92.89 Other specified places as the place of occurrence of the external cause; Y99.8 Other external cause status
CPT/HCPCS: 81001; 81025; 87086; 99284